=== PATIENT | male | born 1960 | race Caucasian/White ===

== ENCOUNTER 2017-10-21 09:16 | Emergency (ER) | payer BC, OTHER ==
[~2017-10-21] VITALS: Ht 167.6 cm; Wt 73.9 kg
[~2017-10-21 09:16] MED LIST: CALCTAB5 PO
[2017-10-21 09:23] VITALS: TEMP 36.8; Ht 167.6 cm; Wt 73.9 kg
[2017-10-21] MEDS ORDERED: CIPROFLOXACIN 500 MG TAB PO STA (09:44)
[2017-10-21] MEDS ORDERED: OXYCODONE HCL IR 5 MG TAB (IMMEDIATE RELEASE) PO STA (09:44)
[2017-10-21] MEDS ORDERED: ONDANSETRON 4MG OD TAB PO ONE (09:45)
[2017-10-21] MEDS ORDERED: CHN/1 PO (09:50)
--- NOTE | 2017-10-21 09:52 | EMERGENCY ROOM VISIT NOTE ---
History Report prepared by Silva: Hyacinth Israel Under the Supervision of: Dr. Misael Sánchez D.O. First contact with patient: 09:26 Chief Complaint: OTHER COMPLAINT Stated Complaint: SWOLLEN PROSTATE & PAIN History of Present Illness The patient is a 56 year old male who presents to the Emergency Room with complaints of worsening groin pain for the past two days. The patient has pain in his right groin that radiates into his right testicle. He describes his pain as "shooting" and rates it as a 5/10 in severity. He also notes that his right testicle appears swollen. He has been taking Advil for pain. The patient states that he has experienced similar symptoms in the past, but they quickly resolved and he has never seen a physician for this before. He denies fevers, chills, nausea, vomiting, abdominal pain, back pain, urinary symptoms, penile discharge , pain with bowel movements, and pain or swelling in his legs. Source of History: patient Onset: 2 days ago Position: pelvis (groin) Symptom Intensity: 5/10 Quality: other (shooting) Timing: worsening Modifying Factors (Relieving): ibuprofen Associated Symptoms: No fevers, No chills, No nausea, No vomiting, No abdominal pain, No back pain, No urinary symptoms Review of Systems See HPI for pertinent positives & negatives. A total of 10 systems reviewed and were otherwise negative. Past Medical & Surgical Medical Problems: (1) Dermatophytosis of foot (2) Tobacco use disorder Family History Diabetes mellitus Gallbladder disease Heart disease Social History Smoking Status: Current Every Day Smoker Smokeless Tobacco Use: No Alcohol Use: none Marital Status: Housing Status: lives with significant other Occupation Status: employed Current/Historical Medications Scheduled Ciprofloxacin Hcl (Cipro), 500 MG PO BID Varenicline (Chantix), 1 TAB PO BID Allergies Coded Allergies: No Known Allergies (Unverified , NONE, 10/21/17) Physical Exam Vital Signs Date Time Temp Pulse Resp B/P (MAP) Pulse Ox O2 Delivery O2 Flow Rate FiO2 10/21/17 12:13 76 18 130/76 97 10/21/17 11:22 72 10/21/17 11:17 76 18 147/85 97 Room Air 10/21/17 09:23 36.8 85 18 152/93 96 Room Air Physical Exam GENERAL: Patient is awake, alert, and in no acute distress. Patient is resting comfortably and showing no signs of anxiety EYES: The conjunctivae are clear. The pupils are round and reactive. EARS, NOSE, MOUTH AND THROAT: The nose is without any evidence of any deformity. Mucous membranes are moist tongue is midline NECK: The neck is nontender and supple. RESPIRATORY: Normal respiratory effort is noted there is no evidence of wheezing rhonchi or rales CARDIOVASCULAR: Regular rate and rhythm noted there no murmurs rubs or gallops normal S1 normal S2 GASTROINTESTINAL: The abdomen is soft. Bowel sounds are present in all quadrants. Abdomen is nontender : Circumcised male genitalia appreciated. No rashes or discharge noted. Testicles descended bilaterally. There was significant epididymal tenderness and overlying erythema on the right. BACK: No midline tenderness or or step-off noted range of motion in flexion extension as well as rotation no signs of muscle spasm noted MUSCULOSKELETAL/EXTREMITIES: There is no evidence of gross deformity full range of motion is noted in the hips and shoulders SKIN: There is no obvious evidence of any rash. There are no petechiae, pallor or cyanosis noted. NEUROLOGIC: Patient is awake alert and oriented x3 Medical Decision & Procedures ER Provider Diagnostic Interpretation: Radiology results as stated below per my review and radiologist interpretation: SCROTAL ULTRASOUND CLINICAL HISTORY: Right-sided pain. COMPARISON STUDY: None. TECHNIQUE: Grayscale and color and duplex Doppler sonography of the scrotum was performed. FINDINGS: The right testis measures 3 x 3 x 2.3 cm and the left measures 4.5 x 2.7 x 1.9 cm. There is no testicular mass. There is slight asymmetric increased flow within the right testis. The right epididymis is heterogeneous and hypervascular. Note is made of a 1.4 cm complex hypoechoic focus within the epididymal tail with irregular wall and no color flow. This favors an abscess. No additional fluid collections are present. There is a left-sided varicocele. There are small bilateral hydroceles. IMPRESSION: 1. Findings suggestive of right-sided epididymoorchitis. 1.4 cm hypoechoic focus within the right epididymal tail favors a small epididymal abscess. A spermatocele or complex epididymal cyst could appear similar although are considered less likely given adjacent hypervascularity. 2. No evidence of testicular torsion. 3. Mild right testicular atrophy. Electronically signed by: Alfie Drake M.D. 10/21/2017 11:18 AM Dictated Date/Time: 10/21/2017 11:09 AM Laboratory Results Test 10/21/17 10:10 Urine Color YELLOW Urine Appearance CLEAR (CLEAR) Urine pH 7.5 (4.5-7.5) Urine Specific [place] 1.010 (1.000-1.030) Urine Protein NEG (NEG) Urine Glucose (UA) NEG (NEG) Urine Ketones NEG (NEG) Urine Occult Blood NEG (NEG) Urine Nitrite NEG (NEG) Urine Bilirubin NEG (NEG) Urine Urobilinogen NEG (NEG) Urine Leukocyte Esterase NEG (NEG) Laboratory results per my review. Medications Administered Medications (Trade) Dose Ordered Sig/Gabe Route Start Time Stop Time Status Last Admin Dose Admin Oxycodone HCl (Roxicodone Immediate Rel Tab) 5 mg NOW STAT PO 10/21/17 09:44 10/21/17 09:46 DC 10/21/17 10:06 5 MG Ondansetron HCl (Zofran Odt) 4 mg ONE ONCE PO 10/21/17 09:45 10/21/17 09:46 DC 10/21/17 10:06 4 MG Ciprofloxacin (Cipro Tab) 500 mg NOW STAT PO 10/21/17 09:44 10/21/17 09:46 DC 10/21/17 10:06 500 MG ED Course 0935: The patient was evaluated in room B5. A complete history and physical examination were performed. 0944: Cipro tab 500 mg PO, Oxycodone HCl 5 mg PO 0945: Zofran 4 mg PO 1127: I spoke with MARIO Huang with urology. We discussed the patient' s case. They will follow up with the patient in the office as an outpatient. 1148: I reassessed the patient at this time. He is feeling better and resting comfortably. I discussed the results and treatment plan with the patient. I answered all pertaining questions that he had. He expressed understanding and verbalized agreement. The patient will be discharged home. Medical Decision Differential diagnosis: Etiologies such as torsion, mass, infection, hernia, hydrocele, epididymitis, trauma, intra-abdominal process, as well as others were entertained. Nursing notes reviewed. The patient is a 56-year-old male who presented to the emergency department with testicular pain. His history and physical exam appear to be consistent with epididymitis and orchitis. The patient did not have a fever. His urinalysis did not appear to show signs of infection. The patient's ultrasound showed signs of epididymoorchitis but also the possibility of an abscess. I discussed this case with the on-call urology group. They have agreed to see the patient in follow-up as soon as possible. I do feel the patient may require a course of antibiotics prior to evaluation for any surgical intervention on this. I discussed this with the patient and he would prefer no surgical intervention if at all possible. I encouraged him to follow-up with the urologist and continue all medications as prescribed. I also encouraged him to return to emergency department if any signs of systemic infection were to develop such as fever nausea severe pain dizziness or if the swelling and pain in his testicle became worse. Medication Reconcilliation Current Medication List: was personally reviewed by me Blood Pressure Screening Patient's blood pressure: Elevated blood pressure Blood pressure disposition: Elevated BP felt to be situational Consults Time Called: 1121 Consulting Physician: MARIO Huang Returned Call: 1127 I spoke with MARIO Huang with urology. We discussed the patient's case. They will follow up with the patient in the office as an outpatient. Impression Primary Impression: Epididymitis Additional Impression: Orchitis Scribe Attestation The scribe's documentation has been prepared under my direction and personally reviewed by me in its entirety. I confirm that the note above accurately reflects all work, treatment, procedures, and medical decision making performed by me. Departure Information Dispostion Home / Self-Care Prescriptions Ciprofloxacin Hcl (CIPRO) 500 Mg Tab 500 MG PO BID, #28 TAB Prov: Misael Sánchez, 10/21/17 Referrals No Doctor, Assigned (PCP) Forms HOME CARE DOCUMENTATION FORM, IMPORTANT VISIT INFORMATION, WORK / SCHOOL INSTRUCTIONS Patient Instructions Epididymitis Orchitis, My [facility] labs Additional Instructions Continue using Motrin and Tylenol as directed for pain. Continue all other medications as prescribed. Follow-up with urologist this week as scheduled. Problem Qualifiers
--- NOTE | 2017-10-21 11:19 | DIAGNOSTIC IMAGING REPORT ---
SCROTAL ULTRASOUND CLINICAL HISTORY: Right-sided pain. COMPARISON STUDY: None. TECHNIQUE: Grayscale and color and duplex Doppler sonography of the scrotum was performed. FINDINGS: The right testis measures 3 x 3 x 2.3 cm and the left measures 4.5 x 2.7 x 1.9 cm. There is no testicular mass. There is slight asymmetric increased flow within the right testis. The right epididymis is heterogeneous and hypervascular. Note is made of a 1.4 cm complex hypoechoic focus within the epididymal tail with irregular wall and no color flow. This favors an abscess. No additional fluid collections are present. There is a left-sided varicocele. There are small bilateral hydroceles. IMPRESSION: 1. Findings suggestive of right-sided epididymoorchitis. 1.4 cm hypoechoic focus within the right epididymal tail favors a small epididymal abscess. A spermatocele or complex epididymal cyst could appear similar although are considered less likely given adjacent hypervascularity. 2. No evidence of testicular torsion. 3. Mild right testicular atrophy. Electronically signed by: Alfie Drake M.D. 10/21/2017 11:18 AM Dictated Date/Time: 10/21/2017 11:09 AM
[2017-10-21] MEDS ORDERED: CIPR-255 PO (11:39)
[2017-10-21 12:13] VITALS: BP 130/76; PULSE 76; O2SAT 97
== END 2017-10-21 12:13 | disposition home or self-care (01) ==
LOC: C.EDB 09:19
DX: N45.3 Epididymo-orchitis (principal); R03.0 Elevated blood-pressure reading, without diagnosis of hypertension; F17.200 Nicotine dependence, unspecified, uncomplicated; Z83.3 Family history of diabetes mellitus; Z82.49 Family history of ischemic heart disease and other diseases of the circulatory system; Z83.79 Family history of other diseases of the digestive system